=== PATIENT | female | born 1960 | race African-American/Black ===

== ENCOUNTER 2018-06-23 14:16 | Inpatient (IN) | payer OTHER ==
[2018-06-23 17:36] VITALS: BMI 19.4
--- NOTE | 2018-06-23 21:25 | HP ---
CIWA Score Nausea/Vomitin-No Nausea/No Vomiting Muscle Tremors: None Anxiety: 1-Mildly Anxious Agitation: 1-Slight > Activity Paroxysmal Sweats: No Perspiration Orientation: 0-Oriented Tacttile Disturbances: 0-None Auditory Disturbances: 0-None Visual Disturbances: 0-None Headache: 0-None Present CIWA-Ar Total Score: 2 - Admission Criteria OASAS Guidelines: Admission for Medically Managed Detox: Requires at least one of the followin. CIWA greater than 12 2. Seizures within the past 24 hours 3. Delirium tremens within the past 24 hours 4. Hallucinations within the past 24 hours 5. Acute intervention needed for co occurring medical disorder 6. Acute intervention needed for co occurring psychiatric disorder 7. Severe withdrawal that cannot be handled at a lower level of care (continued vomiting, continued diarrhea, abnormal vital signs) requiring intravenous medication and/or fluids 8. Admission ROS [facility] - [facility] Chief Complaint: States here for klonopin and crack detox. . Allergies/Adverse Reactions: Allergies Allergy/AdvReac Type Severity Reaction Status Date / Time No Known Drug Allergies Allergy Verified 06/23/18 23:23 [id number] Allergy Uncoded 06/23/18 17:16 [id number] Allergy Uncoded 06/23/18 17:15 History of Present Illness: States here for help w/ crack, klonopin, and opiate use. Continues to use opiates despite being on a methadone at [facility]. States Current dose is Methadone 70 mg Po Daily. Currently heroin use is 5-6 bags daily. Last methadone dose today. Heroin use began at age 30. [facility] has a Narcan Kit at home. Cocaine use began at age 20/Crack use began at age 56. States currently using $ 60-70 per day Klonopin use began at age 38 intermittently. Urine tox negative for benzo ( Repeated x 2) Nicotine use began at age 14. PMHx:Denies significant PMH. States was on COPD meds but has not taken for months. MHHx: Panic attacks. Depression. Denies thoughts of harming self or others. No recent Psych visit. Takes Seroquel for sleep. Patient Name: Caroline Vazquez Date: 1960 Address: [address] [place] [address] Sex: Female Rx Written Rx Dispensed Drug Quantity Days Supply Prescriber Name 05/12/2018 05/12/2018 clonazepam 0.25 mg odt 30 15 [facility] 05/12/2018 05/12/2018 oxycodone hcl 10 mg tablet 21 7 [facility] 08/10/2017 08/14/2017 clonazepam 0.5 mg tablet 90 30 Karen Powers ([employer]) 07/13/2017 07/13/2017 clonazepam 0.5 mg tablet 90 30 Karen Powers ([employer]) Exam Limitations: No Limitations - Ebola screening Have you traveled outside of the country in the last 21 days: No Have you had contact with anyone from an Ebola affected area: No Have you been sick,other than usual withdrawal symptoms: No (Denies recent exposure to measles) Do you have a fever: No - Review of Systems Constitutional: Chills EENT: reports: Blurred Vision, Dental Problems (Dentures) Respiratory: reports: No Symptoms reported Cardiac: reports: No Symptoms Reported GI: reports: No Symptoms Reported : reports: No Symptoms Reported Musculoskeletal: reports: No Symptoms Reported Integumentary: reports: No Symptoms Reported Neuro: reports: No Symptoms reported Endocrine: reports: No Symptoms Reported Hematology: reports: No Symptoms Reported Psychiatric: reports: Judgement Intact, Orientated x3, Anxious, Depressed ( Depression. Denies thoughts of harming self or others.) Patient History - PPD History Previous Implant?: Yes Documented Results: Negative w/o proof Implanted On Prior [facility] Admission?: No PPD to be Administered?: Yes - Smoking Cessation Smoking history: Current every day smoker Have you smoked in the past 12 months: Yes Aproximately how many cigarettes per day: 10 Hx Chewing Tobacco Use: No Initiated information on smoking cessation: Yes 'Breaking Loose' booklet given: 06/23/18 - Substance & Tx. History Hx Alcohol Use: Yes (No alcohol problem) Hx Substance Use: Yes Substance Use Type: Cocaine, Heroin, Tranquilizers Hx Substance Use Treatment: Yes (detox, rehab; Currently on [facility]) - Substances abused Benzodiazepine (Klonopin) Substance route: Oral Frequency: Daily Amount used: 6 mg Age of first use: 53 Date of last use: 06/23/18 Crack Substance route: Smoking Frequency: Daily Amount used: $20 Age of first use: 56 Date of last use: 06/20/18 Admission Physical Exam [facility] - Vital Signs Vital Signs: Vital Signs - 24 hr 06/23/18 17:24 Temperature 97.0 F L Pulse Rate 57 L Respiratory 20 Rate Blood Pressure 111/54 L - Physical General Appearance: Yes: No Apparent Distress, Anxious HEENTM: Yes: EOMI, Normocephalic, MONA (Pupils = 1 mm) Respiratory: Yes: Lungs Clear, Normal Breath Sounds, No Respiratory Distress Neck: Yes: No masses,lesions,Nodules, Supple Breast: Yes: Breast Exam Deferred Cardiology: Yes: Regular Rhythm, S1, S2, Bradycardia Abdominal: Yes: Non Tender, Flat, Soft Genitourinary: Yes: Within Normal Limits Back: Yes: Normal Inspection Musculoskeletal: Yes: full range of Motion, Gait Steady Extremities: Yes: Normal Capillary Refill, Normal Range of Motion 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 NML intact, Fully Oriented, Alert, Motor Strength 5/5 Integumentary: Yes: Normal Color, Dry, Warm Lymphatic: Yes: Within Normal Limits - Diagnostic (1) Cocaine dependence, uncomplicated Current Visit: Yes Status: Chronic (2) Opioid use disorder, severe, on maintenance therapy Current Visit: Yes Status: Chronic Comment: On MMTP but relapses w/ heroin (3) Nicotine dependence, uncomplicated Current Visit: Yes Status: Chronic Qualifiers: Nicotine product type: cigarettes Qualified Code(s): F17.210 - Nicotine dependence, cigarettes, uncomplicated (4) Bradycardia Current Visit: Yes Status: Chronic (5) History of COPD Current Visit: Yes Status: Suspected Cleared for Admission [facility] - Detox or Rehab Claeared for Rehab Admission: Yes Inpatient Rehab Admission - Rehab Decision to Admit Inpatient rehab admission?: Yes - Initial Determination Are CD services needed?: Yes Free of communicable disease: Yes Not in need of hospitalization: Yes - Rehab Admission Criteria Previous failed treatment: Yes Poor recovery environment: Yes Comorbidities: Yes Lacks judgement: No Patient is meeting Inpatient Rehab admission criteria:: Yes
[2018-06-23] MEDS ORDERED: guaiFENesin 200 MG/10 ML 10 ML UNIT-DOSE CUPS PO PRN (22:59)
[2018-06-23] MEDS ORDERED: ACETAMINOPHEN 325 MG TABLET (FP) PO PRN (22:59)
[2018-06-23] MEDS ORDERED: LOPERAMIDE HCL 2 MG CAPSULE PO PRN (22:59)
[2018-06-23] MEDS ORDERED: MENTHOL/PHENOL 1 EACH UD MM PRN (22:59)
[2018-06-23] MEDS ORDERED: MAG HYDROX/AL HYDROX/SIMETH 30 ML UNIT-DOSE CUP PO PRN (22:59)
[2018-06-23] MEDS ORDERED: MAGNESIUM CITRATE 300 ML BOTTLE PO PRN (22:59)
[2018-06-23] MEDS ORDERED: MAGNESIUM HYDROX 2400MG/30ML ORAL SUSPENSION 30 ML CUP PO PRN (22:59)
[2018-06-23] MEDS ORDERED: IBUPROFEN 400 MG TABLET (FP) PO PRN (22:59)
[2018-06-23] MEDS ORDERED: P-EPHED 60MG/TRIPROLIDI 2.5MG TABLET PO PRN (22:59)
[2018-06-24] MEDS: hydrOXYzine PAMOATE 50 MG CAPSULE (FP) PO PRN ×2 (00:01→11:12)
[2018-06-24] MEDS: NICOTINE 14 MG/24 HOURS TOPICAL PATCH TD SCH (09:44)
[2018-06-24] MEDS: PRENATAL VITAMINS W/ FOLIC ACID TABLET (FP) PO SCH (09:44)
[2018-06-24] MEDS ORDERED: METHADONE HCL 10 MG TABLET PO SCH (10:00)
[2018-06-24] MEDS ORDERED: METHADONE HCL 10 MG TABLET ONE (10:04)
[2018-06-24] MEDS ORDERED: METHADONE HCL 40 MG DISPERSABLE TABLET ONE (10:05)
[2018-06-24 10:18] LABS: HEMATOCRIT 37.7 % (32.4-45.2); HEMOGLOBIN 12.3 GM/dL (10.7-15.3); MCH 29.3 pg (25.7-33.7); MCHC 32.6 g/dl (32.0-36.0); MEAN CELL VOLUME 89.8 fl (80-96); MEAN PLT VOLUME 9.3 fl (7.5-11.1); PLATELET COUNT 289 K/MM3 (134-434); RBC 4.19 M/mm3 (3.60-5.2); RDW 14.6 % (11.6-15.6); WHITE BLOOD COUNT 4.8 K/mm3 (4.0-10.0)
[2018-06-24 10:19] LABS: ALBUMIN 3.4 g/dl (3.4-5.0); ALK PHOS 87 U/L (45-117); ANION GAP 5 MMOL/L (8-16); BILIRUBIN,TOTAL 0.5 mg/dL (0.2-1); BLOOD UREA NITROGEN 16 mg/dL (7-18); CHLORIDE 108 mmol/L (98-107); CO2 29 mmol/L (21-32); CREATININE 0.8 mg/dL (0.55-1.3); GLUCOSE,RANDOM 84 mg/dL (74-106); POTASSIUM 4.5 mmol/L (3.5-5.1); SGOT/AST 16 U/L (15-37); SGPT/ALT 19 U/L (13-61); SODIUM 142 mmol/L (136-145); TOT PROT 6.5 g/dl (6.4-8.2)
[2018-06-24] MEDS: METHADONE 40 MG, METHADONE 30 MG PO SCH (10:24)
--- NOTE | 2018-06-24 10:48 | CONSULT ---
[facility] Psychiatric Consult - Data Date of interview: 06/24/18 Admission source: Self-referred Identifying data: Ms Vazquez is a 58 years old Black female, mother of 2 children, unemployed receiving survivor benefit, domiciled seeking rehab treatment for cocaine, heroin and benzodiazepine Substance Abuse History: Reports history of cocaine and klonopin use, Refer to addiction counselor's summary for further information Medical History: Significant for COPD and history of hysterectomy in 2016. Patient is on methadone 70 mg/day from [facility]. Smoke 10 cigarettes daily Psychiatric History: Reports that first psychiatric contact was in 2004 when she was admitted to a psychiatric facility, diagnosed with Bipolar Disorder and started on psychotropic medications. Reports multiple subsequent hospitalizations at various institutions including [facility], [facility], [facility] and most recently in April 2018 at [facility] for depression. She was discharged on Seroquel 200 mg po HS, Zoloft 100 mg po daily and Klonopin 0.25 mg po BID and referred for aftrcare. 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 Discharge medications are confirmed by external medication claims. Denies previous suicidal attempt. At present, denies experiencing psychotic or manic symptoms as well as S/H ideations. However, reports feeling depressed, anxious and sleeping poorly Physical/Sexual Abuse/Trauma History: Denies history of emotional, physical or sexual abuse as well as DV relationship Additional Comment: Denies criminal history Mental Status Exam - Mental Status Exam Alert and Oriented to: Time, Place, Person Patient Appearance: Well Groomed Mood: Depressed Affect: Appropriate Patient Behavior: Cooperative Speech Pattern: Clear Voice Loudness: Normal Thought Process: Intact Thought Disorder: Not Present Hallucinations: Denies Suicidal Ideation: Denies Homicidal Ideation: Denies Insight/Judgement: Poor Sleep: Poorly Appetite: Poor Muscle strength/Tone: Normal Gait/Station: Normal Psychiatric Findings - Problem List ([place] 1, 2,3) (1) Bipolar II disorder Current Visit: Yes Status: Chronic (2) Substance induced mood disorder Current Visit: Yes Status: Acute (3) Substance-induced sleep disorder Current Visit: Yes Status: Acute (4) Cocaine dependence Current Visit: Yes Status: Acute (5) Sedative hypnotic or anxiolytic dependence Current Visit: Yes Status: Acute (6) Opioid dependence on agonist therapy Current Visit: Yes Status: Chronic (7) Nicotine dependence Current Visit: Yes Status: Chronic (8) COPD (chronic obstructive pulmonary disease) Current Visit: Yes Status: Chronic - Initial Treatment Plan Initial Treatment Plan: 1) Continue Seroquel 200 mg po HS and Zoloft 100 mg po daily. 2) Continue inpatient detoxification
[2018-06-24] MEDS: SERTRALINE HCL 50 MG TABLET (FP) PO SCH (12:11)
--- NOTE | 2018-06-24 13:44 | PN ---
[facility] Progress Note Note: Client is complaining of withdrawal symptoms- back ache, general aches and pain , anxiety. v Encouraged client to take medications that treat the symptoms- visteril, motrin and robixin. Client has not used these medications. Will continue to monitor. CBC, BMP 06/24/18 07:40 06/24/18 07:40 Vital Signs (72 hours) 06/23/18 06/24/18 06/24/18 17:24 00:04 07:20 Temperature 97.0 F L 97 F L 98.2 F Pulse Rate 57 L 57 L 64 Respiratory 20 16 18 Rate Blood Pressure 111/54 L 97/65 105/73
[2018-06-24] MEDS: THIAMINE HCL 100 MG TABLET (FP) PO SCH (21:12)
[2018-06-24] MEDS: QUEtiapine FUMARATE 200 MG TABLET PO SCH (21:12)
[2018-06-24] MEDS: MELATONIN 5 MG TABLETS PO PRN (21:12)
[2018-06-24] MEDS ORDERED: PT OWN MED DRAWER 7, Y5N ONE (22:01)
[2018-06-25] MEDS ORDERED: METHADONE HCL 40 MG DISPERSABLE TABLET ONE (03:27)
[2018-06-25] MEDS ORDERED: METHADONE HCL 10 MG TABLET ONE (03:27)
[2018-06-25] MEDS: METHADONE 40 MG, METHADONE 30 MG PO SCH (06:38)
[2018-06-25] MEDS: NICOTINE 14 MG/24 HOURS TOPICAL PATCH TD SCH (10:17)
[2018-06-25] MEDS: SERTRALINE HCL 50 MG TABLET (FP) PO SCH (10:17)
[2018-06-25] MEDS: PRENATAL VITAMINS W/ FOLIC ACID TABLET (FP) PO SCH (10:17)
[2018-06-25] MEDS: hydrOXYzine PAMOATE 50 MG CAPSULE (FP) PO PRN ×3 (10:19→21:06)
--- NOTE | 2018-06-25 10:40 | PN ---
S Progress Note Note: Client refused EKG upon admission, stating that she didn't want to do it at night. Discussed reasons for EKG with patient. She has agreed to do it tomorrow.
[2018-06-25] MEDS: QUEtiapine FUMARATE 200 MG TABLET PO SCH (21:03)
[2018-06-25] MEDS: THIAMINE HCL 100 MG TABLET (FP) PO SCH (21:04)
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
[2018-06-25] MEDS: BACITRACIN 0.9 GM PACKET TP SCH (21:56)
[2018-06-26] MEDS ORDERED: METHADONE HCL 40 MG DISPERSABLE TABLET ONE (03:19)
[2018-06-26] MEDS ORDERED: METHADONE HCL 10 MG TABLET ONE (03:19)
[2018-06-26] MEDS: BACITRACIN 0.9 GM PACKET TP SCH ×3 (06:30→21:35)
[2018-06-26] MEDS: METHADONE 40 MG, METHADONE 30 MG PO SCH (06:30)
[2018-06-26] MEDS: NICOTINE POLACRILEX 2 MG GUM BUC PRN ×2 (06:32→18:10)
[2018-06-26] MEDS: hydrOXYzine PAMOATE 50 MG CAPSULE (FP) PO PRN ×3 (06:32→18:09)
[2018-06-26] MEDS: PRENATAL VITAMINS W/ FOLIC ACID TABLET (FP) PO SCH (09:46)
[2018-06-26] MEDS: SERTRALINE HCL 50 MG TABLET (FP) PO SCH (09:47)
[2018-06-26] MEDS: NICOTINE 21 MG/24 HOURS TOPICAL PATCH TD SCH (09:47)
[2018-06-26] MEDS ORDERED: PT OWN MED DRAWER 7, Y5N ONE (10:12)
[2018-06-26] MEDS: THIAMINE HCL 100 MG TABLET (FP) PO SCH (21:34)
[2018-06-26] MEDS: QUEtiapine FUMARATE 200 MG TABLET PO SCH (21:35)
[2018-06-27] MEDS ORDERED: METHADONE HCL 10 MG TABLET ONE (03:28)
[2018-06-27] MEDS ORDERED: METHADONE HCL 40 MG DISPERSABLE TABLET ONE (03:28)
[2018-06-27] MEDS: BACITRACIN 0.9 GM PACKET TP SCH ×3 (06:35→21:25)
[2018-06-27] MEDS: hydrOXYzine PAMOATE 50 MG CAPSULE (FP) PO PRN ×3 (06:36→18:26)
[2018-06-27] MEDS: METHADONE 40 MG, METHADONE 30 MG PO SCH (06:36)
[2018-06-27] MEDS: NICOTINE POLACRILEX 2 MG GUM BUC PRN ×4 (06:36→21:26)
[2018-06-27] MEDS ORDERED: PT OWN MED DRAWER 7, Y5N ONE ×2 (08:53→22:37)
[2018-06-27] MEDS: NICOTINE 21 MG/24 HOURS TOPICAL PATCH TD SCH (10:12)
[2018-06-27] MEDS: PRENATAL VITAMINS W/ FOLIC ACID TABLET (FP) PO SCH (10:12)
[2018-06-27] MEDS: SERTRALINE HCL 50 MG TABLET (FP) PO SCH (10:12)
[2018-06-27] MEDS: QUEtiapine FUMARATE 200 MG TABLET PO SCH (21:25)
[2018-06-27] MEDS: THIAMINE HCL 100 MG TABLET (FP) PO SCH (21:25)
[2018-06-28] MEDS ORDERED: METHADONE HCL 40 MG DISPERSABLE TABLET ONE (05:51)
[2018-06-28] MEDS ORDERED: METHADONE HCL 10 MG TABLET ONE (05:51)
[2018-06-28] MEDS: BACITRACIN 0.9 GM PACKET TP SCH ×3 (06:31→21:22)
[2018-06-28] MEDS: METHADONE 40 MG, METHADONE 30 MG PO SCH (06:31)
[2018-06-28] MEDS: hydrOXYzine PAMOATE 50 MG CAPSULE (FP) PO PRN ×4 (06:31→21:23)
[2018-06-28] MEDS: NICOTINE 21 MG/24 HOURS TOPICAL PATCH TD SCH (10:25)
[2018-06-28] MEDS: NICOTINE POLACRILEX 2 MG GUM BUC PRN ×2 (10:26→12:42)
[2018-06-28] MEDS: PRENATAL VITAMINS W/ FOLIC ACID TABLET (FP) PO SCH (10:26)
[2018-06-28] MEDS: SERTRALINE HCL 50 MG TABLET (FP) PO SCH (10:26)
[2018-06-28] MEDS: THIAMINE HCL 100 MG TABLET (FP) PO SCH (21:22)
[2018-06-28] MEDS: QUEtiapine FUMARATE 200 MG TABLET PO SCH (21:23)
[2018-06-29] MEDS ORDERED: METHADONE HCL 40 MG DISPERSABLE TABLET ONE (05:45)
[2018-06-29] MEDS ORDERED: METHADONE HCL 10 MG TABLET ONE (05:45)
[2018-06-29] MEDS: BACITRACIN 0.9 GM PACKET TP SCH ×3 (06:59→21:12)
[2018-06-29] MEDS: METHADONE 40 MG, METHADONE 30 MG PO SCH (07:00)
[2018-06-29] MEDS: hydrOXYzine PAMOATE 50 MG CAPSULE (FP) PO PRN ×3 (07:02→17:59)
[2018-06-29] MEDS: SERTRALINE HCL 50 MG TABLET (FP) PO SCH (09:51)
[2018-06-29] MEDS: PRENATAL VITAMINS W/ FOLIC ACID TABLET (FP) PO SCH (09:51)
[2018-06-29] MEDS: NICOTINE 21 MG/24 HOURS TOPICAL PATCH TD SCH (09:51)
[2018-06-29] MEDS: NICOTINE POLACRILEX 2 MG GUM BUC PRN ×2 (09:52→17:59)
[2018-06-29] MEDS ORDERED: PT OWN MED DRAWER 7, Y5N ONE (19:54)
[2018-06-29] MEDS: QUEtiapine FUMARATE 200 MG TABLET PO SCH (21:12)
[2018-06-29] MEDS: THIAMINE HCL 100 MG TABLET (FP) PO SCH (21:13)
[2018-06-30] MEDS ORDERED: METHADONE HCL 10 MG TABLET ONE (05:48)
[2018-06-30] MEDS ORDERED: METHADONE HCL 40 MG DISPERSABLE TABLET ONE (05:49)
[2018-06-30] MEDS: hydrOXYzine PAMOATE 50 MG CAPSULE (FP) PO PRN ×3 (06:35→21:52)
[2018-06-30] MEDS: METHADONE 40 MG, METHADONE 30 MG PO SCH (06:35)
[2018-06-30] MEDS: BACITRACIN 0.9 GM PACKET TP SCH ×3 (06:35→21:52)
[2018-06-30] MEDS: NICOTINE 21 MG/24 HOURS TOPICAL PATCH TD SCH (09:51)
[2018-06-30] MEDS: SERTRALINE HCL 50 MG TABLET (FP) PO SCH (09:52)
[2018-06-30] MEDS: PRENATAL VITAMINS W/ FOLIC ACID TABLET (FP) PO SCH (09:52)
[2018-06-30] MEDS: NICOTINE POLACRILEX 2 MG GUM BUC PRN ×3 (09:54→18:08)
[2018-06-30] MEDS ORDERED: PT OWN MED DRAWER 7, Y5N ONE ×2 (13:58→14:00)
--- NOTE | 2018-06-30 14:30 | PN ---
[facility] Progress Note Note: LAB REVIEW: Laboratory Tests 06/23/18 06/24/18 06/24/18 23:59 07:40 07:40 WBC 4.8 RBC 4.19 Hgb 12.3 Hct 37.7 MCV 89.8 MCH 29.3 MCHC 32.6 RDW 14.6 Plt Count 289 MPV 9.3 Sodium 142 Potassium 4.5 Chloride 108 H Carbon Dioxide 29 Anion Gap 5 L BUN 16 Creatinine 0.8 Creat Clearance w eGFR 73.67 Random Glucose 84 Calcium 9.0 Total Bilirubin 0.5 AST 16 ALT 19 Alkaline Phosphatase 87 Total Protein 6.5 Albumin 3.4 POC Urine HCG, Qual Negative RPR Titer 06/24/18 07:40 WBC RBC Hgb Hct MCV MCH MCHC RDW Plt Count MPV Sodium Potassium Chloride Carbon Dioxide Anion Gap BUN Creatinine Creat Clearance w eGFR Random Glucose Calcium Total Bilirubin AST ALT Alkaline Phosphatase Total Protein Albumin POC Urine HCG, Qual RPR Titer Nonreactive LABS RESULT NOTED.
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
[2018-06-30] MEDS: HYDROCORTISONE 1% TOPICAL CREAM 30 GM TUBE TP SCH ×2 (17:14→21:53)
[2018-06-30] MEDS: diphenhydrAMINE HCL 25 MG CAPSULE (FP) PO PRN (17:14)
[2018-06-30] MEDS: THIAMINE HCL 100 MG TABLET (FP) PO SCH (21:52)
[2018-06-30] MEDS: QUEtiapine FUMARATE 200 MG TABLET PO SCH (21:52)
[2018-07-01] MEDS ORDERED: METHADONE HCL 10 MG TABLET ONE (03:12)
[2018-07-01] MEDS ORDERED: PT OWN MED DRAWER 7, Y5N ONE ×2 (03:13→19:52)
[2018-07-01] MEDS ORDERED: METHADONE HCL 40 MG DISPERSABLE TABLET ONE (03:13)
[2018-07-01] MEDS: BACITRACIN 0.9 GM PACKET TP SCH ×3 (06:12→22:27)
[2018-07-01] MEDS: METHADONE 40 MG, METHADONE 30 MG PO SCH (06:12)
[2018-07-01] MEDS: HYDROCORTISONE 1% TOPICAL CREAM 30 GM TUBE TP SCH ×3 (06:12→22:27)
[2018-07-01] MEDS: diphenhydrAMINE HCL 25 MG CAPSULE (FP) PO PRN (06:13)
[2018-07-01] MEDS: PRENATAL VITAMINS W/ FOLIC ACID TABLET (FP) PO SCH (09:54)
[2018-07-01] MEDS: SERTRALINE HCL 50 MG TABLET (FP) PO SCH (09:54)
[2018-07-01] MEDS: NICOTINE 21 MG/24 HOURS TOPICAL PATCH TD SCH (09:54)
[2018-07-01] MEDS: hydrOXYzine PAMOATE 50 MG CAPSULE (FP) PO PRN ×2 (09:55→14:43)
[2018-07-01] MEDS: NICOTINE POLACRILEX 2 MG GUM BUC PRN ×2 (09:56→18:33)
--- NOTE | 2018-07-01 13:54 | PN ---
[facility] Progress Note Note: Patient reports sleeping poorly despite taking Seroquel 200 mg po HS. Will add Belsomra 10 mg po HS prn for insomnia to her regimen. Hypnotic properties as well as adverse-effects of that medication discussed with patient
[2018-07-01] MEDS ORDERED: SUVOREXANT 10 MG TABLET PO PRN (22:00)
[2018-07-01] MEDS: THIAMINE HCL 100 MG TABLET (FP) PO SCH (22:28)
[2018-07-01] MEDS: QUEtiapine FUMARATE 200 MG TABLET PO SCH (22:28)
[2018-07-02] MEDS ORDERED: PT OWN MED DRAWER 7, Y5N ONE ×2 (03:14→03:15)
[2018-07-02] MEDS ORDERED: METHADONE HCL 10 MG TABLET ONE (06:43)
[2018-07-02] MEDS ORDERED: METHADONE HCL 40 MG DISPERSABLE TABLET ONE (06:43)
[2018-07-02] MEDS: BACITRACIN 0.9 GM PACKET TP SCH ×3 (06:44→21:14)
[2018-07-02] MEDS: METHADONE 40 MG, METHADONE 30 MG PO SCH (06:44)
[2018-07-02] MEDS: HYDROCORTISONE 1% TOPICAL CREAM 30 GM TUBE TP SCH ×3 (06:44→21:15)
[2018-07-02] MEDS: hydrOXYzine PAMOATE 50 MG CAPSULE (FP) PO PRN (06:45)
[2018-07-02] MEDS: SERTRALINE HCL 50 MG TABLET (FP) PO SCH (10:05)
[2018-07-02] MEDS: PRENATAL VITAMINS W/ FOLIC ACID TABLET (FP) PO SCH (10:05)
[2018-07-02] MEDS: NICOTINE 21 MG/24 HOURS TOPICAL PATCH TD SCH (10:05)
[2018-07-02] MEDS: NICOTINE POLACRILEX 2 MG GUM BUC PRN ×2 (10:06→21:27)
[2018-07-02] MEDS: MELATONIN 5 MG TABLETS PO PRN (21:15)
[2018-07-02] MEDS: QUEtiapine FUMARATE 200 MG TABLET PO SCH (21:15)
[2018-07-02] MEDS: THIAMINE HCL 100 MG TABLET (FP) PO SCH (21:15)
[2018-07-02] MEDS: diphenhydrAMINE HCL 25 MG CAPSULE (FP) PO PRN (21:15)
[2018-07-03] MEDS ORDERED: METHADONE HCL 10 MG TABLET ONE (03:42)
[2018-07-03] MEDS ORDERED: METHADONE HCL 40 MG DISPERSABLE TABLET ONE (03:42)
[2018-07-03] MEDS ORDERED: PT OWN MED DRAWER 7, Y5N ONE ×4 (03:44→21:16)
[2018-07-03] MEDS: METHADONE 40 MG, METHADONE 30 MG PO SCH (06:38)
[2018-07-03] MEDS: BACITRACIN 0.9 GM PACKET TP SCH ×3 (06:39→21:39)
[2018-07-03] MEDS: HYDROCORTISONE 1% TOPICAL CREAM 30 GM TUBE TP SCH ×3 (06:39→21:39)
[2018-07-03] MEDS: hydrOXYzine PAMOATE 50 MG CAPSULE (FP) PO PRN ×2 (06:39→13:03)
[2018-07-03] MEDS: NICOTINE 21 MG/24 HOURS TOPICAL PATCH TD SCH (09:53)
[2018-07-03] MEDS: SERTRALINE HCL 50 MG TABLET (FP) PO SCH (09:54)
[2018-07-03] MEDS: PRENATAL VITAMINS W/ FOLIC ACID TABLET (FP) PO SCH (09:54)
[2018-07-03] MEDS: NICOTINE POLACRILEX 2 MG GUM BUC PRN ×2 (09:55→13:03)
[2018-07-03] MEDS: diphenhydrAMINE HCL 25 MG CAPSULE (FP) PO PRN ×2 (09:56→21:39)
--- NOTE | 2018-07-03 20:12 | PN ---
[facility] Progress Note Note: PT COMPLETED REHAB AND SCHEDULED TO DISCHARGE TOMORROW. PT HAS BEEN REFERRED BACK TO HER MMTP OTC AT [facility] FOR CD AFTERCARE. PT ALSO REPORTS SHE IS ABLE TO ACCESS PRIMARY CARE AT [facility].L..ALERT O X3. DENIES S/ H/I. Home Medications Medication Instructions Recorded Budesonide/Formeterol Fumarate 1 inh PO BID 06/23/18 [SYMBICORT 80/4.5mcg -] Tiotropium [place] [Spiriva] 1 inh PO DAILY 06/23/18 clonazePAM [Klonopin -] 2 mg PO BID 06/23/18 Vital Signs - 24 hr 07/03/18 07/03/18 07/03/18 00:30 03:30 06:59 Temperature 97.0 F L Pulse Rate 73 Respiratory 16 16 18 Rate Blood Pressure 108/74 Laboratory Tests 06/23/18 06/24/18 06/24/18 23:59 07:40 07:40 WBC 4.8 RBC 4.19 Hgb 12.3 Hct 37.7 MCV 89.8 MCH 29.3 MCHC 32.6 RDW 14.6 Plt Count 289 MPV 9.3 Sodium 142 Potassium 4.5 Chloride 108 H Carbon Dioxide 29 Anion Gap 5 L BUN 16 Creatinine 0.8 Creat Clearance w eGFR 73.67 Random Glucose 84 Calcium 9.0 Total Bilirubin 0.5 AST 16 ALT 19 Alkaline Phosphatase 87 Total Protein 6.5 Albumin 3.4 POC Urine HCG, Qual Negative RPR Titer 06/24/18 07:40 WBC RBC Hgb Hct MCV MCH MCHC RDW Plt Count MPV Sodium Potassium Chloride Carbon Dioxide Anion Gap BUN Creatinine Creat Clearance w eGFR Random Glucose Calcium Total Bilirubin AST ALT Alkaline Phosphatase Total Protein Albumin POC Urine HCG, Qual RPR Titer Nonreactive SKIN RASH RESOLVED. NAD MEDICALLY STABLE FOR D/C PLAN:FOLLOW UP WITHCD AFTERCARE RECOMMENDATIONS. FOLLOW UP WITH PCP WITHIN 1 -2 WEEKS AFTER DISCHARGE.
[2018-07-03] MEDS: THIAMINE HCL 100 MG TABLET (FP) PO SCH (21:39)
[2018-07-03] MEDS: QUEtiapine FUMARATE 200 MG TABLET PO SCH (21:39)
[2018-07-04] MEDS ORDERED: METHADONE HCL 10 MG TABLET ONE (05:43)
[2018-07-04] MEDS ORDERED: PT OWN MED DRAWER 7, Y5N ONE (05:44)
[2018-07-04] MEDS ORDERED: METHADONE HCL 40 MG DISPERSABLE TABLET ONE (05:44)
[2018-07-04] MEDS: BACITRACIN 0.9 GM PACKET TP SCH (06:20)
[2018-07-04] MEDS: METHADONE 40 MG, METHADONE 30 MG PO SCH (06:21)
[2018-07-04] MEDS: HYDROCORTISONE 1% TOPICAL CREAM 30 GM TUBE TP SCH (06:22)
[2018-07-04] MEDS: hydrOXYzine PAMOATE 50 MG CAPSULE (FP) PO PRN (06:23)
--- NOTE | 2018-07-04 06:25 | PN ---
[facility] Progress Note Note: Patient is scheduled for discharge today. Script for 30 days supply of medications(Seroquel 200 mg/hs, Zoloft 100 mg/day) are electronically transmitted to [facility] @ [address] [place] [address]
[2018-07-04 06:37] VITALS: BP 100/65; PULSE 70; TEMP 97.8
[2018-07-04] MEDS: SERTRALINE HCL 50 MG TABLET (FP) PO SCH (08:59)
[2018-07-04] MEDS: PRENATAL VITAMINS W/ FOLIC ACID TABLET (FP) PO SCH (08:59)
[2018-07-04] MEDS: NICOTINE 21 MG/24 HOURS TOPICAL PATCH TD SCH (09:00)
== END 2018-07-04 09:12 | disposition home or self-care (01) | DRG 895 ==
LOC: YASAS 14:16 → Y3N 17:45 → Y3E 17:45 → UNDOADMIN 17:45 → Y3E 06-24 01:13 → Y3N 06-24 01:13 → Y3E 06-28 22:16
PROVIDERS: ADMIT Neuromusculoskeletal Medicine & OMM; ATTEND Neuromusculoskeletal Medicine & OMM
PROC: HZ42ZZZ Group Counseling for Substance Abuse Treatment, Cognitive-Behavioral (ICD-10-PCS; principal; 2018-06-23)
DX: F13.20 Sedative, hypnotic or anxiolytic dependence, uncomplicated (principal); F11.20 Opioid dependence, uncomplicated; F14.20 Cocaine dependence, uncomplicated; F31.81 Bipolar II disorder; F19.282 Other psychoactive substance dependence with psychoactive substance-induced sleep disorder; F17.210 Nicotine dependence, cigarettes, uncomplicated; F19.24 Other psychoactive substance dependence with psychoactive substance-induced mood disorder; R00.1 Bradycardia, unspecified; R21 Rash and other nonspecific skin eruption; T23.102A Burn of first degree of left hand, unspecified site, initial encounter; T31.0 Burns involving less than 10% of body surface; X15.8XXA Contact with other hot household appliances, initial encounter; Y93.9 Activity, unspecified; Y92.9 Unspecified place or not applicable
CPT/HCPCS: 36415; 80053; 81025; 85027; 86593